=== PATIENT | female | born 1960 | race African-American/Black ===

== ENCOUNTER 2017-05-19 05:46 | Emergency (ER) | payer BC ==
[~2017-05-19] VITALS: Ht 154.9 cm; Wt 90.7 kg
--- NOTE | ~2017-05-19 | EKG ---
PATIENT: LELAND STANTON UNIT #: [id number] Ventricular Rate: 99 BPM Atrial Rate: 99 BPM P-R Interval: 132 ms QRS Duration: 80 ms Q-T Interval: 342 ms QTC Calculation(Bezet): 438 ms P [place]: 63 degrees Calculated R [place]: 23 degrees Calculated T [place]: 22 degrees Diagnosis Line: Normal sinus rhythm with sinus arrhythmia Diagnosis Line: Normal ECG Diagnosis Line: When compared with ECG of 26-OCT-2009 04:47, Diagnosis Line: Vent. rate has increased BY 34 BPM Diagnosis Line: Confirmed by BOB HAWKINS MD ([id number]) on Diagnosis Line: 05/19/2017 9:37:10 AM INTERPRETING MD: ORSS WARREN
[~2017-05-19 05:46] MED LIST: ADVAIR 100-501 EACH IH; ALPRAZOLAM PO; AMBIEN PO; CLARITIN10 MG PO; LODINE PO; MEDROL DOSEPAK4 MG DOB; MOTRIN600 M2 PO; NEXIUM PO; NO MEDICATIONS; NORCO 5/325 TAB1 TAB PO; PLAQUENIL200 MG PO; PREDNISONE PO; PRILOSEC PO; PROZAC PO; ULTRAM PO
== END 2017-05-19 08:12 | disposition home or self-care (01) ==
LOC: CED 05:46
DX: M62.830 Muscle spasm of back (principal)
CPT/HCPCS: 93005; 99283

== ENCOUNTER → 2017-06-26 | Outpatient (CLI) | payer BC ==
--- NOTE | ~2017-06-26 | MR32 ---
[facility] A Service of [facility] & [facility] RADIOLOGY TEXT RESULTS PATIENT: LELAND STANTON LOCATION: [facility] : 60 UNIT #: [id number] AGE: [address]: Sage Kee IV, MD SEX: F ORDER DR: [id number] [facility]. [place], [place] [address] [id number] O MR#: [id number] Acc #: [id number] NAME: LELAND STANTON. : 1960 SEX: F STUDY DATE/TIME: 06/26/2017 15:06 UNIT: [facility] ROOM: STUDY DESCRIPTION: MR Cervical Wo Contrast Attending Physician: Sage Kee M.D. Referring Physician: Sage Kee M.D. Ordering Physician: Sage Kee M.D. Primary Care Physician: [facility] MRI CENTER REPORT This report is preliminary unless electronic signature is present. EXAM MRI of the cervical spine without contrast dated 06/26/2017 COMPARISON Cervical spine series dated 01/07/2014. HISTORY Left-sided neck pain extending to the left arm with occasional tingling for the last 6 months. FINDINGS Multisequence, multiplanar imaging of the cervical spine was obtained without contrast. There is loss of normal cervical curvature. Vertebral body heights and alignment are preserved. Degenerative disc disease is at multiple levels. Cord demonstrates normal expected course, caliber and signal. Mild degenerative changes are in the visualized thoracic spine. Pre- and paravertebral soft tissues do not demonstrate any significant abnormality. C2-3: Mild disc bulge with mild bilateral facet changes. Borderline-sized canal without significant neural foraminal narrowing. C3-4: Mild disc bulge with right uncinate spur. Mild bilateral facet changes particularly in the left. Mild to moderate right neural foraminal narrowing is seen. C4-5, C5-6: Concentric disc bulge with small central protrusion. Borderline-sized canal. No significant neural foraminal narrowing. C6-7, C7-T1: Mild degenerative disc signal loss is seen but otherwise unremarkable. IMPRESSION Degenerative changes are noted at multiple levels as described above, STS. [facility] A Service of [facility] & [facility] RADIOLOGY TEXT RESULTS PATIENT: LELAND STANTON LOCATION: [facility] : 60 UNIT #: [id number] AGE: [address]: Sage Kee IV, MD SEX: F ORDER DR: slightly worse at C4-5. Dictated by... Steve Davidson M.D. THIS IS AN ELECTRONICALLY VERIFIED REPORT Steve Davidson M.D. at 06/27/2017 3:04 PM CPR/mjs TD: 06/27/2017 09:42 JOB #: [id number] MRI CENTER REPORT Page 1 of 1 COPY
== END | disposition home or self-care (01) ==
LOC: CMRI 14:39
DX: M48.02 Spinal stenosis, cervical region (principal); M50.30 Other cervical disc degeneration, unspecified cervical region; M50.81 Other cervical disc disorders, high cervical region; M50.821 Other cervical disc disorders at C4-C5 level; M50.822 Other cervical disc disorders at C5-C6 level
CPT/HCPCS: 72141